=== PATIENT | male | born 1940 | race Caucasian/White ===

== ENCOUNTER 2016-09-19 11:10 | Emergency (ER) | payer OTHER ==
[2016-09-19 11:18] VITALS: BP 146/81; PULSE 77; TEMP 98.2; BMI 33.3
--- NOTE | 2016-09-19 11:56 | PDOC ---
History of Present Illness - General Chief Complaint: RX Refill Stated Complaint: PRESCRIPTION FINISHED/ NEED TO DOCTOR Time Seen by Provider: 09/19/16 11:40 History Source: Patient Exam Limitations: No Limitations - History of Present Illness Initial Comments: 09/19/16 11:51 76 yr male recently arrived back from [facility] presenting to ER asking for refill of 'BARFIME" states he takes it for his stomach. Pt does not have empty bottle with him and is unsure of another name of the medication. Pt has other medications with him. 09/19/16 12:04 Past History - Past Medical History Allergies/Adverse Reactions: Allergies Allergy/AdvReac Type Severity Reaction Status Date / Time No Known Allergies Allergy Verified 09/19/16 11:18 Home Medications: Ambulatory Orders Amlodipine Besylate [Norvasc -] 10 mg PO DAILY 09/19/13 Metoprolol Tartrate [Lopressor -] 50 mg PO BID 09/19/13 Pravastatin Sodium [Pravachol -] 0 mg PO HS 09/19/13 Ramipril [Altace] 10 mg PO DAILY 09/19/13 Omeprazole 20 mg PO DAILY 06/16/15 Quinapril HCl [Accupril] 5 mg PO DAILY 09/19/16 Anemia: No Asthma: No Cancer: No Cardiac Disorders: Yes (CAD, atherosclerotic heart disease) CVA: No COPD: No CHF: No Dementia: No Diabetes: Yes GI Disorders: No Disorders: No HTN: Yes Hypercholesterolemia: Yes Liver Disease: No Seizures: No Thyroid Disease: No - Surgical History Abdominal Surgery: No Appendectomy: Yes Cardiac Surgery: Yes (AORTIC VALVE REPLACEMENT '04, PACEMAKER) Cholecystectomy: No Lung Surgery: No Neurologic Surgery: No Orthopedic Surgery: No - Immunization History Immunization Up to Date: Yes - Psycho/Social/Smoking Cessation Hx Anxiety: No Suicidal Ideation: No Smoking History: Current every day smoker Have you smoked in the past 12 months: Yes Number of Cigarettes Smoked Daily: 20 Cigars Per Day: 0 Information on smoking cessation initiated: Yes 'Breaking Loose' booklet given: 09/19/16 Hx Alcohol Use: No Drug/Substance Use Hx: No Substance Use Type: None Hx Substance Use Treatment: No *Physical Exam - Vital Signs Last Vital Signs Temp Pulse Resp BP Pulse Ox 98.2 F 77 20 146/81 95 09/19/16 11:12 09/19/16 11:12 09/19/16 11:12 09/19/16 11:12 09/19/16 11:12 - Physical Exam General Appearance: Yes: Nourished HEENT: positive: EOMI, MERCED Neck: positive: Supple Respiratory/Chest: positive: Lungs Clear, Normal Breath Sounds Cardiovascular: positive: Regular Rhythm, Regular Rate Musculoskeletal: positive: Normal Inspection Extremity: positive: Normal Capillary Refill, Normal Inspection, Normal Range of Motion Integumentary: positive: Normal Color, Dry, Warm Neurologic: positive: Fully Oriented, Alert, Normal Mood/Affect, Normal Response , Motor Strength 09/03 Medical Decision Making - Medical Decision Making 09/19/16 11:52 cc: asking for med refill, pt does not have a bottle or a pack of the meds with him . pt unsure of the name of the medication , unsure what pharmacy possible "[facility]" I have attempted to locate pharmacy record at [facility] the pharmacist has no record of this patient I have discussed with patient that he needs to call tomorrow morning to get the medication. pt has no complaints at present. 09/19/16 12:06 09/19/16 12:14 *DC/Admit/Observation/Transfer Diagnosis at time of Disposition: Encounter for medication refill - Discharge Dispostion Disposition: HOME Condition at time of disposition: Good - Referrals Referrals: [facility] [Provider Group] Ofelia Borjas MD [Staff Physician] - - Patient Instructions Additional Instructions: please follow with your doctor call tomorrow morning or at the [facility] for follow up bring an empty bottle or package with you at that visit of the medication you ran out of
== END 2016-09-19 12:15 | disposition home or self-care (01) ==
LOC: JERFT 11:10
DX: Z76.0 Encounter for issue of repeat prescription (principal); I25.10 Atherosclerotic heart disease of native coronary artery without angina pectoris; I10 Essential (primary) hypertension; Z95.4 Presence of other heart-valve replacement; Z95.0 Presence of cardiac pacemaker
CPT/HCPCS: 99281-25